=== PATIENT | female | born 1955 | race Asian ===

== ENCOUNTER 2020-03-16 12:55 | Emergency (ER) | payer OTHER ==
[2020-03-16 13:01] VITALS: BP 91/59; PULSE 57; TEMP 97.6; BMI 17.7
--- NOTE | 2020-03-16 13:04 | PDOC ---
History of Present Illness - General Chief Complaint: Injury Stated Complaint: LEFT ELBOW INJURY Time Seen by Provider: 03/16/20 13:00 - History of Present Illness Initial Comments: 03/16/20 13:05 Chief complaint: Pain left elbow HPI: Tripped and fell at home immediately [employer], injuring left elbow. Complains of pain and deformity of the elbow. Denies distal numbness tingling pain or weakness of the forearm wrist or hand. Denies any other injuries including injuries to the head neck chest abdomen spine pelvis or other extremities Review of systems: Denies lightheadedness, dizziness, vertigo, visual or focal neurologic symptoms, unsteadiness of gait. Denies chest pain, shortness of breath, abdominal pain, nausea, vomiting, diarrhea, urinary tract symptoms, vaginal bleeding or discharge Past medical history: "Irregular heartbeat" etiology unclear, on no medications. Breast cancer 2005, mastectomy, no chemotherapy or radiation, no recurrence. Social/family history reviewed and noncontributory Physical exam: Alert and oriented, mild distress due to pain in the left elbow, cooperative Afebrile, vital signs normal Head atraumatic. PERRLA, fundi benign, ENT clear Neck without tenderness or deformity, full range of motion without pain Lungs clear, bilateral breath sounds symmetric and full, no chest wall or rib cage tenderness or deformity CV regular without murmur rub or gallop pulses full and symmetric no JVD or edema no bruits 90 and regular Abdomen benign Extremities: There is swelling and deformity of the left elbow, probably from a supracondylar fracture. The olecranon is palpated and is nontender. The injury seems to involve the distal humerus. Pulses are full. Capillary refill is intact. There is no distal sensory or motor deficits demonstrable. The upper arm, shoulder, wrist, and hand show no visible or palpable injury or deformities. Neurological C2 to 12 intact. Strength full and symmetric. No focal sensorimotor deficits. Gait stable and unimpaired Impression: Probable supracondylar fracture of the left elbow. No neurovascular compromise is apparent Plan: X-ray and further orthopedic management. Past History - Medical History Allergies/Adverse Reactions: Allergies Allergy/AdvReac Type Severity Reaction Status Date / Time No Known Allergies Allergy Verified 03/16/20 12:56 Home Medications: Ambulatory Orders NK [No Known Home Medication] 08/07/17 Anemia: No Asthma: No Cancer: Yes (L breast) Cardiac Disorders: Yes (irregular heart beat detected 40 years ago,not taking any medication) CVA: No COPD: No CHF: No Dementia: No Diabetes: No GI Disorders: No Disorders: No HTN: No Hypercholesterolemia: No Liver Disease: No Seizures: No Thyroid Disease: No - Surgical History Abdominal Surgery: No Appendectomy: No Cholecystectomy: No Orthopedic Surgery: Yes (R knee arthroscopy) - Psycho-Social/Smoking History Smoking History: Never smoked Have you smoked in the past 12 months: No Information on smoking cessation initiated: No - Substance Abuse Hx (Audit-C & DAST Scrn) How often the patient has a drink containing alcohol: Never Score: In Men: 4 or > Positive; In Women: 3 or > Positive: 0 Screen Result (Pos requires Nsg. Audit-10AR): Negative In the last yr the pt used illegal drug/Rx for NonMed reason: No Score: Yes response is considered Positive: 0 Screen Result (Positive result requires Nsg. DAST-10): Negative *Physical Exam - Vital Signs Last Vital Signs Temp Pulse Resp BP Pulse Ox 97.6 F 57 L 20 91/59 L 99 03/16/20 12:55 03/16/20 12:55 03/16/20 12:55 03/16/20 12:55 03/16/20 12:55 Medical Decision Making - Medical Decision Making 03/16/20 14:06 X-ray reveals a supracondylar fracture of the elbow, comminuted, but not significantly displaced. The radial head and proximal ulna visualized in one view appear uninvolved. Neurovascular exam is intact. A sling was applied for comfort. The patient refused analgesics for the time being. Dr. Montanez, orthopedist, was contacted by phone. He was able to review the x- rays. He requested a CT to evaluate the joint, and he will see the patient afterwards in the ER for further evaluation. 03/16/20 17:15 CT was performed. Surprisingly good alignment and position maintained. Dr. Montanez evaluated the patient in the emergency room. He reviewed the x-rays and CT. He elected to maintain position with a posterior splint, which he applied. Neurovascular examination was intact. He will follow the patient closely. It was emphasized to the patient and her that increased pain, numbness, or tingling in the elbow or forearm, hand, or fingers could indicate a dangerous condition called compartment syndrome. She could minimize the chance of developing compartment syndrome by using ice continuously, keeping the arm elevated, but if further symptoms develop to return to the emergency room immediately. They seem to understand and agree and were discharged by Dr. Montanez. Discharge - Discharge Information Problems reviewed: Yes Clinical Impression/Diagnosis: Closed fracture of condyle of left elbow Condition: Improved Disposition: HOME - Admission No - Follow up/Referral Referrals: Kel Montanez DO [Staff Physician] - - Patient Discharge Instructions Patient Printed Discharge Instructions: How to Use a Sling, DI for Elbow Fracture Additional Instructions: Very important to use ice and elevate. If there is severe pain, numbness, tingling, or weakness in the arm, return to ER immediately. This can be a sign of a serious complication of fracture called compartment syndrome. - Post Discharge Activity
--- NOTE | 2020-03-16 17:25 | CONSULT ---
Consult - text type - Consultation Consultation Note: ORTHOPEDIC SURGERY CONSULTATION NOTE Department of Orthopedic Surgery HISTORY OF PRESENT ILLNESS Ms. Ness is a 64 year old right hand dominant female who presents to [facility] with after a mechanical fall with left elbow pain. The orthopedic service was consulted for a left elbow intra-articular distal humerus fracture. The injury occurred today after a mechanical fall. The patient c/o pain and swelling in her left elbow that worsens with movement and improves with rest. Denies any other injuries. Denies numbness, tingling or other constitutional complaints. Denies tobacco use, drug use, alcohol abuse. The patient lives with family and uses no assistive devices at baseline. FAMILY HISTORY non-contributory REVIEW OF SYMPTOMS A twelve-point review of systems was performed and was negative except as noted in HPI. PHYSICAL EXAM Constitutional: Alert and oriented to person, place, and time. Appears well- developed and well-nourished. No acute distress, appropriate mood and affect. Right Upper Extremity: Skin warm, dry, and intact; no lesions, rashes or ulcers noted. Muscle mass equal and symmetric to contralateral side. No atrophy noted. No masses or effusions noted. No tenderness to palpation all joints; nontender throughout rest of extremity. Full passive and active ROM, free from pain. Joints stable with no pathologic laxity. M/R/U/MSK/AX motor intact; SILT distally; 2+ radial pulses; Cap refill brisk. Tone and reflexes normal. Left Upper Extremity: Skin warm, dry, and intact; no lesions, rashes or ulcers noted. Muscle mass equal and symmetric to contralateral side. No atrophy noted. No masses or effusions noted. Tender to palpation at over the distal humerus and olecranon with significant swelling. Compartments are compressible; nontender throughout rest of extremity. LROM of the left elbow secondary to pain and swelling; Full passive and active ROM of the shoulder, wrist and fingers free from pain. Joints stable with no pathologic laxity of the shoulder and wrist and fingers. M/R/U/MSK/AX motor intact; SILT distally; 2+ radial pulses; Cap refill brisk. Active Problems Problem Status Category Onset Closed fracture of condyle of left elbow Acute Medical Social History Smoking history Never smoked Hx Alcohol Use No Allergies Allergy/AdvReac Type Severity Reaction Status Date / Time No Known Allergies Allergy Verified 03/16/20 12:56 Vital Signs (last) Temp Pulse Resp BP Pulse Ox 97.6 F 57 L 20 91/59 L 99 03/16/20 12:55 03/16/20 12:55 03/16/20 12:55 03/16/20 12:55 03/16/20 12:55 Intake and Output 03/14/20 03/15/20 03/16/20 23:59 23:59 23:59 Other: Weight 110 lb Height 5 ft 6 in Body Mass Index (BMI) 17.7 Weight Measurement Method Estimated by Staff IMAGING I personally reviewed all radiographs, CT, and other imaging. They demonstrate a distal humerus fracture that is intra-articular and comminuted, with minimal displacement. ASSESSMENT AND PLAN Ms. Ness is a 64 year old female presenting status post mechanical fall with a left sided distal humerus fracture. No signs of compartment syndrome. We have reviewed the imaging and clinical findings in detail, as well as their potential implications. After appropriate informed discussion, the patient was placed in a well-padded posterior splint. Patient was instructed regarding: non weight bearing on fractured side. signs and symptoms of compartment syndrome and need to seek immediate care should new onset numbness, tingling, or significantly increasing pain occur. maintain strict elevation above the level of the heart for the next 3-4 days. keeping the splint clean and dry. avoiding NSAID medications. - She will follow up with [facility] to discuss surgical versus non-surgical treatment of her fracture within the next 3 - 5 days. All questions were answered. Thank you for involving our team in the care of this patient.
== END 2020-03-16 18:06 | disposition home or self-care (01) ==
LOC: FER 12:55
DX: S42.452A Displaced fracture of lateral condyle of left humerus, initial encounter for closed fracture (principal)
CPT/HCPCS: 73070-TC-LT-FY; 73200-TC-RT; 99284-25

== ENCOUNTER 2022-10-14 14:01 | Emergency (ER) | payer OTHER ==
[2022-10-14 14:14] VITALS: BP 98/58; PULSE 74; RESP 18; TEMP 98.4; BMI 16.9
[2022-10-14] MEDS ORDERED: IBUPROFEN 600 MG TABLET (FP) PO ONE ×2 (14:39→14:42)
== END 2022-10-14 14:56 | disposition home or self-care (01) ==
LOC: FER 14:01
DX: S62.101A Fracture of unspecified carpal bone, right wrist, initial encounter for closed fracture (principal); W19.XXXA Unspecified fall, initial encounter
CPT/HCPCS: 73110-TC-RT-FY; 99283-25